=== PATIENT | female | born 1980 | race Caucasian/White ===

== ENCOUNTER 2019-03-03 12:10 | Day surgery (SDC) | payer OTHER ==
[2019-02-28 09:18] VITALS: BMI 25.0
[~2019-03-03 12:10] MED LIST: DEXAMETHASONE SOD PHOSPHATE 10 MG/ML 1 ML VIAL IV ONE; HYDROmorphone 0.5 MG/0.5 ML SYRINGE IVP PRN; LACTATED RINGERS 1,000 ML IV SCH; MORPHINE SULFATE 2 MG/ML SYRINGE IV PRN; ONDANSETRON 4 MG/2 ML VIAL IVP ONE; ONDANSETRON 4 MG/2 ML VIAL IVP PRN; Pre Op ABX Message 1 EACH MISC MISCELLANE ONE
[2019-03-03 13:24] VITALS: TEMP 97.6
[2019-03-03] MEDS ORDERED: PROPOFOL 10 MG/ML 20 ML VIAL IV ONE (16:20)
[2019-03-03] MEDS ORDERED: KETAMINE 10 MG/ML 20 ML VIAL ONE (16:20)
[2019-03-03] MEDS ORDERED: fentaNYL (PF) 50 MCG/ML 2 ML AMP ONE (16:20)
[2019-03-03] MEDS ORDERED: MIDAZOLAM 2 MG/2 ML VIAL ONE (16:20)
[2019-03-03] MEDS ORDERED: LIDOCAINE 1%-EPI 1:100,000 20 ML VIAL SQ ONE ×2 (16:42)
[2019-03-03] MEDS ORDERED: BUPIVACAINE (PF) 0.5% 30 ML VIAL SQ ONE ×2 (16:43)
[2019-03-03 17:27] VITALS: RESP 16
[2019-03-03 17:41] VITALS: BP 100/64; PULSE 67
--- NOTE | 2019-03-03 17:49 | P.OP ---
Date of Procedure: 03/03/19 Preoperative Diagnosis: Left carpal tunnel syndrome Postoperative Diagnosis: Left carpal tunnel syndrome Procedure(s) Performed: Left endoscopic carpal tunnel release Anesthesia: MAC, local Surgeon: Brandon Mendoza Estimated Blood Loss (ml): 1 Pathology: none sent Condition: stable Disposition: PACU Indications for Procedure: The patient is a 39 year-old female who was diagnosed with bilateral carpal tunnel syndrome. Treatment options (and associated risks and benefits) were discussed in the office. The patient elected to proceed with surgical release, starting with the left side. In preop, the patient denied any additional questions or concerns. Consent forms were signed. The operative site was confirmed and marked. Description of Procedure: The patient was positioned supine with the operative limb on an arm board. A tourniquet was placed on the operative arm. Anesthesia was administered uneventfully. A time-out was performed, confirming patient identifiers, the operative side, site and the procedure to be performed: all team members expressed agreement. Using aseptic technique, local anesthetic was injected into the subcutaneous tissues around the planned incision. The left upper extremity was then prepped and draped in standard, sterile fashion. The limb was exsanguinated with an Esmarch and the tourniquet was inflated. Loupe magnification was used throughout the case for optimum visualization. A 1.5 cm transverse incision was marked just proximal to the wrist flexion crease, in line with the radial border of the ring finger. The skin was sharply incised and the subcutaneous tissues were bluntly spread. The volar carpal fascia was identified and sharply incised. A synovial elevator was used to release adhesions on the underside of the transverse carpal ligament. A dilator was inserted to sound and enlarge the carpal tunnel. The hamate hook was palpable ulnarly. The side-specific guide and camera were inserted. The transverse carpal ligament was clearly visualized above. The distal edge of the ligament was identified and palpated with a probe. A rasp was used to clear the remaining synovial adhesions. The endoscopic blade was inserted and the distal half of the ligament was sharply incised. Residual distal transverse fibers were released and then the proximal portion of the ligament was divided. Wide release of ligament was visually confirmed. The camera was removed. The volar carpal fascia proximal and distal to the incision was released with scissors under direct visualization. Some tethering synovial adhesions on the inferior aspect of the palmaris longus overlying the nerve were identified and released. The tourniquet was released and good hemostasis was confirmed. The wound was thoroughly irrigated with normal saline. The incision was closed with interrupted 4-0 Nylon sutures. Additional local anesthetic with epinephrine was injected for postoperative pain control and hemostasis. A soft, sterile dressing was applied. All sponge, needle and instrument counts were correct at the end of the case. The patient tolerated the procedure well and was transferred to recovery in stable condition.
== END 2019-03-03 18:00 | disposition home or self-care (01) ==
LOC: OR 12:10
PROVIDERS: ATTEND Orthopaedic Surgery
DX: G56.03 Carpal tunnel syndrome, bilateral upper limbs (principal); M50.10 Cervical disc disorder with radiculopathy, unspecified cervical region; F32.9 Major depressive disorder, single episode, unspecified; R32 Unspecified urinary incontinence; Z79.1 Long term (current) use of non-steroidal anti-inflammatories (NSAID); Z79.52 Long term (current) use of systemic steroids; Z79.899 Other long term (current) drug therapy
CPT/HCPCS: 81025; 64721; J2250; J1100; J2405; J3010; J2704

== ENCOUNTER 2019-03-24 11:43 | Day surgery (SDC) | payer OTHER ==
[2019-03-22 13:15] VITALS: BMI 29.6
[~2019-03-24 11:43] MED LIST changes: -DEXAMETHASONE SOD PHOSPHATE 10 MG/ML 1 ML VIAL IV ONE; -HYDROmorphone 0.5 MG/0.5 ML SYRINGE IVP PRN; -LACTATED RINGERS 1,000 ML IV SCH; -MORPHINE SULFATE 2 MG/ML SYRINGE IV PRN; -ONDANSETRON 4 MG/2 ML VIAL IVP ONE; -ONDANSETRON 4 MG/2 ML VIAL IVP PRN
[2019-03-24 12:58] VITALS: RESP 18; TEMP 97.3
[2019-03-24] MEDS ORDERED: LACTATED RINGERS 1,000 ML IV ONE (13:19)
[2019-03-24] MEDS ORDERED: LIDOCAINE 1% 20 ML VIAL (10MG/ML) FOR IV START INTRADERMA ONE (13:20)
[2019-03-24] MEDS ORDERED: DEXAMETHASONE SOD PHOSPHATE 10 MG/ML 1 ML VIAL IV ONE (13:20)
[2019-03-24] MEDS ORDERED: ONDANSETRON 4 MG/2 ML VIAL IVP ONE (13:21)
[2019-03-24] MEDS ORDERED: SCOPOLAMINE 1.5MG/72HR PATCH TRANSDERM ONE (13:23)
[2019-03-24] MEDS ORDERED: PROPOFOL 10 MG/ML 20 ML VIAL IV ONE (13:30)
[2019-03-24] MEDS ORDERED: KETAMINE 10 MG/ML 20 ML VIAL ONE (13:30)
[2019-03-24] MEDS ORDERED: fentaNYL (PF) 50 MCG/ML 2 ML AMP ONE (13:30)
[2019-03-24] MEDS ORDERED: MIDAZOLAM 2 MG/2 ML VIAL ONE (13:30)
[2019-03-24] MEDS ORDERED: LIDOCAINE 1%-EPI 1:100,000 30 ML VIAL SQ ONE ×3 (13:50→14:17)
[2019-03-24] MEDS ORDERED: BUPIVACAINE (PF) 0.5% 30 ML VIAL SQ ONE ×2 (13:52→14:17)
--- NOTE | 2019-03-24 14:46 | P.OP ---
Date of Procedure: 03/24/19 Preoperative Diagnosis: Right carpal tunnel syndrome Postoperative Diagnosis: Right carpal tunnel syndrome Procedure(s) Performed: Right endoscopic carpal tunnel release Anesthesia: MAC, local Surgeon: Brandon Mendoza Estimated Blood Loss (ml): 2 Condition: stable Disposition: same day Indications for Procedure: The patient is a 39-year-old female who was diagnosed with bilateral carpal tunnel syndrome. She previously underwent left endoscopic carpal tunnel release and returns for release of her right side. Treatment options (and associated risks and benefits) were discussed in the office; she expressed understanding and a desire to proceed with surgery. In preop, the patient denied any additi onal questions or concerns. Consent forms were signed. The operative site was confirmed and marked. Description of Procedure: The patient was positioned supine with the operative limb on an arm board. A tourniquet was placed on the operative arm. Monitored anesthesia was administered uneventfully. A time-out was performed, confirming patient identifiers, the operative side, site and the procedure to be performed: all team members expressed agreement. Using aseptic technique, local anesthetic was injected into the subcutaneous tissues around the planned incision. The right upper extremity was then prepped and draped in standard, sterile fashion. The limb was exsanguinated with an Esmarch and the tourniquet was inflated. Loupe magnification was used throughout the case for optimum visualization. A 1.5 cm transverse incision was marked just proximal to the wrist flexion crease, in line with the radial border of the ring finger. The skin was sharply incised and the subcutaneous tissues were bluntly spread. Superficial vessels adjacent to the incision were carefully mobilized. The volar carpal fascia was identified and sharply incised. A synovial elevator was used to release adhesions on the underside of the transverse carpal ligament. A dilator was inserted to sound and enlarge the carpal tunnel. The hamate hook was palpable ulnarly. The side-s pecific guide and camera were inserted. The transverse carpal ligament was clearly visualized above. The distal edge of the ligament was identified and palpated with a probe. A rasp was used to clear the remaining synovial adhesions. The endoscopic blade was inserted and the distal half of the ligament was sharply incised. Residual distal transverse fibers were released and then the proximal portion of the ligament was divided. Wide release of ligament was visually confirmed. Muscle fibers were noted above the proximal portion of the cut ligament, likely representing a palmaris brevis. The camera was removed. The volar carpal fascia proximal and distal to the incision was released with scissors under direct visualization. The tourniquet was released. There was a mild amount of arterial bleeding from the proximal aspect of the wound which was very well controlled with held pressure. The wound was thoroughly irrigated with normal saline. The incision was closed with interrupted 4-0 Nylon sutures. Additional local anesthetic with epinephrine was injected for adjunctive hemostasis and postoperative pain control. A soft, sterile dressing was applied. All sponge, needle and instrument counts were correct at the end of the case. The patient tolerated the procedure well and was transferred to recovery in stable condition.
[2019-03-24 15:05] VITALS: BP 117/79; PULSE 73
== END 2019-03-24 15:05 | disposition home or self-care (01) ==
LOC: OR 11:43
PROVIDERS: ATTEND Orthopaedic Surgery
DX: G56.01 Carpal tunnel syndrome, right upper limb (principal); F32.9 Major depressive disorder, single episode, unspecified; R32 Unspecified urinary incontinence; Z98.890 Other specified postprocedural states; M50.10 Cervical disc disorder with radiculopathy, unspecified cervical region; Z79.2 Long term (current) use of antibiotics; Z79.899 Other long term (current) drug therapy
CPT/HCPCS: 81025; 29848; J2250; J1100; J2405; J3010; J2704

== ENCOUNTER 2019-10-27 11:35 | Inpatient (IN) | payer MEDICAID, OTHER ==
--- NOTE | 2019-10-27 12:21 | ED ---
General Adult HPI - General Chief complaint: Psychiatric Symptoms Stated complaint: Mental Health Time Seen by Provider: 10/27/19 11:45 Source: patient, RN notes reviewed, old records reviewed Mode of arrival: ambulatory Limitations: no limitations - History of Present Illness Initial comments: This a 39-year-old female presents emergency department with past medical history significant for depression and a history of OCD. Patient is on multiple medications and she stops and starts some as she sees necessary. Patient states she hasn't taken anything for days. Patient states she is been depressed for the last couple of weeks to the point where she can't go to work and she continued to get out of bed most days. Her mom states her house is normal macula it but now it is a complete mess that she's not even doing her laundry. Patient does make suicidal statements but states she isn't suicidal she just wishes she wasn't here but she would never commit suicide because of her dogs and her children. Patient denies any physical complaints today. Patient denies chest pain difficulty breathing first breath. - Related Data Home Medications Medication Instructions Recorded Confirmed ARIPiprazole [Abilify] 4 mg PO QAM 02/28/19 10/27/19 FLUoxetine HCL [PROzac] 60 mg PO QAM 02/28/19 10/27/19 Oxybutynin Chloride [Ditropan] 5 mg PO HS 02/28/19 10/27/19 Pregabalin [Lyrica] 150 mg PO BID 02/28/19 10/27/19 Dextroamphetamine/Amphetamine 20 mg PO BID 03/22/19 10/27/19 [Adderall] lamoTRIgine [LaMICtal] 100 mg PO DAILY 10/27/19 10/27/19 Allergies Allergy/AdvReac Type Severity Reaction Status Date / Time No Known Allergies Allergy Verified 10/27/19 13:01 Review of Systems ROS Statement: Those systems with pertinent positive or pertinent negative responses have been documented in the HPI. ROS Other: All systems not noted in ROS Statement are negative. Past Medical History Additional Past Medical History / Comment(s): Urinary incontinence. Questionabl left palm fracture, had fall on 03/18/19, Dr Mendoza examined and had Xray. History of Any Multi-Drug Resistant Organisms: None Reported Past Surgical History: Breast Surgery, Section Additional Past Surgical History / Comment(s): Breast reduction, C5 and C6- implants, left wrist carpal tunnel release. Past Anesthesia/Blood Transfusion Reactions: No Reported Reaction Past Psychological History: Anxiety, Bipolar, Depression Smoking Status: Never smoker Past Alcohol Use History: None Reported Past Drug Use History: Marijuana - Past Family History Mother Family Medical History: No Reported History General Exam - General Exam Comments Initial Comments: GENERAL: Patient is well-developed and well-nourished. Patient is nontoxic and well- hydrated and is in mild distress. ENT: Neck is soft and supple. No significant lymphadenopathy is noted. Oropharynx is clear. Moist mucous membranes. Neck has full range of motion without eliciting any pain. EYES: The sclera were anicteric and conjunctiva were pink and moist. Extraocular movements were intact and pupils were equal round and reactive to light. Eyelids were unremarkable. PULMONARY: Unlabored respirations. Good breath sounds bilaterally. No audible rales rhonchi or wheezing was noted. CARDIOVASCULAR: There is a regular rate and rhythm without any murmurs gallops or rubs. ABDOMEN: Soft and nontender with normal bowel sounds. SKIN: Skin is clear with no lesions or rashes and otherwise unremarkable. NEUROLOGIC: Patient is alert and oriented x3. Cranial nerves II through XII are grossly intact. Motor and sensory are also intact. Normal speech, volume and content. Symmetrical smile. MUSCULOSKELETAL: Normal extremities with adequate strength and full range of motion. No lower extremity swelling or edema. No calf tenderness. LYMPHATICS: No significant lymphadenopathy is noted PSYCHIATRIC: Patient is very depressed occasionally tearful and states she doesn't know was wrong with her but she has no motivation to do anything all she wants to do now is go home and go to bed. Patient does deny suicidal ideations. Patient states she wishes she was alive but she does not want harm himself Limitations: no limitations Course Vital Signs 10/27/19 11:43 Temperature 97.6 F Pulse Rate 97 Respiratory 16 Rate Blood Pressure 119/82 O2 Sat by Pulse 93 L Oximetry Medical Decision Making - Medical Decision Making EPS evaluated the patient and decided to admit the patient. - Lab Data Lab Results 10/27/19 Range/Units 13:00 Urine Opiates Screen Not Detected (NotDetected) Ur Oxycodone Screen Not Detected (NotDetected) Urine Methadone Screen Not Detected (NotDetected) Ur Propoxyphene Screen Not Detected (NotDetected) Ur Barbiturates Screen Not Detected (NotDetected) U Tricyclic Antidepress Detected H (NotDetected) Ur Phencyclidine Scrn Not Detected (NotDetected) Ur Amphetamines Screen Detected H (NotDetected) U Methamphetamines Scrn Detected H (NotDetected) U Benzodiazepines Scrn Detected H (NotDetected) Urine Cocaine Screen Not Detected (NotDetected) U Marijuana (THC) Screen Detected H (NotDetected) Disposition Clinical Impression: Depression Disposition: ADMITTED IP TO THIS HOSP Referrals: Austen Calero MD [Primary Care Provider] - 1-2 days Time of Disposition: 13:34
[2019-10-27 13:28] LABS: Amphetamine Screen,Urine Detected (NotDetected); Barbiturate Screen,Urine Not Detected (NotDetected); Benzodiazepines Screen,Urine Detected (NotDetected); Cocaine Screen,Urine Not Detected (NotDetected); Methadone Screen, Urine Not Detected (NotDetected); Opiate Screen,Urine Not Detected (NotDetected); Oxycodone Screen, Urine Not Detected (NotDetected); Phencyclidine Screen,Urine Not Detected (NotDetected); Tricyclic Antidepressant,Urine Detected (NotDetected); Urn Cannabinoid Scrn Detected (NotDetected)
[2019-10-27] MEDS ORDERED: ACETAMINOPHEN TAB 325 MG TAB PO PRN (13:47)
[2019-10-27] MEDS ORDERED: MAGNESIUM HYDROXIDE 2,400 MG/10 ML CUP PO PRN (13:47)
[2019-10-27] MEDS ORDERED: MAG HYDROX/AL HYDROX/SIMETH 30 ML CUP PO PRN (13:47)
[2019-10-27 14:34] LABS: Appearance,Urine Cloudy (Clear); Bacteria,Urine Occasional /hpf; Bilirubin,Urine Negative (Negative); Blood,Urine Small (Negative); Calcium Oxalate Crystals,Urine Moderate /hpf; Color,Urine Dark Yellow; Glucose,Urine (UA) Negative (Negative); Ketones,Urine 1+ (Negative); Leukocyte Esterase,Urine Small (Negative); Mucus,Urine Many /hpf; Nitrite,Urine Negative (Negative); Protein,Urine 1+ (Negative); RBC,Urine 12 /hpf (0-5); Specific Gravity,Urine 1.031 (1.001-1.035); Squamous Epithelial Cell,Urine 25 /hpf (0-4); WBC,Urine 9 /hpf (0-5)
[2019-10-27] MEDS: OXYBUTYNIN CHLORIDE 5 MG TAB PO SCH (21:00)
--- NOTE | 2019-10-27 21:05 | P.CONS ---
History of Present Illness - Reason for Consult Consult date: 10/27/19 medical management Requesting physician: Brien Chaves - Chief Complaint Not feeling well - History of Present Illness Consultation: This is a 39-year-old patient of Dr. Arsenio Calero. Patient has a diagnosis of bipolar disorder and obsessive-compulsive disorder. Has seen a psychiatrist in the past. Further medications are being managed by her PCP. Recent patient stopped taking her medications. Just not feeling right. Not able to do her job. 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 Telemetry was to get back to work and able to do so. She did: August job and just felt she could not do it. She is also broken recently from a 5-year-old relationship. Patient is sleepy but not able to sleep well. Appetite is gone down. Somewhat restless. Mind his daughter at rest. In the ER was reported that normally patient's house is a well taking care of put currently in no mass. Patient's body will be doing her laundry. Patient did make some suicidal statements but really wants to get back to work complete to normal life. She has a 12-year-old son. Review of systems: GEN.: Tired EYES: None HEENT: None NECK: None RESPIRATORY: None CARDIOVASCULAR: None GASTROINTESTINAL: None GENITOURINARY: None MUSCULOSKELETAL: None LYMPHATICS: None HEMATOLOGICAL: None PSYCHIATRY: As above NEUROLOGICAL: None Past medical history to include: Bipolar disorder, obsessive-compulsive disorder, urinary incontinence Social history: -This is a 12-year-old son. 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 Broke up from a 5-year-old relationship recently. Does marijuana nearly daily and also THC oil Family history: Reviewed, noncontributory to presentation Physical examination: VITAL SIGNS: 97.6, 97, 16, 11 9/82, 93% room air GENERAL: 26.9, sitting up in a chair somewhat fidgety restless. EYES: Pupils equal. Conjunctiva normal. HEENT: External appearance of nose and ears normal, oral cavity grossly normal. NECK: JVD not raised; masses not palpable. HEART: First and second heart sounds are normal; no edema. LUNGS: Respiratory rate normal; clear to auscultation. ABDOMEN: Soft, nontender, liver spleen not palpable, no masses palpable. PSYCH: Alert and oriented x3; mood and affect anxiousl. NEUROLOGICAL: Cranial nerves grossly intact; no facial asymmetry, power and sensation grossly intact. LYMPHATICS: No lymph nodes palpable in the axilla and neck DERMATOLOGICAL: Dry skin INVESTIGATIONS, reviewed in the clinical context: UA-contaminated sample Urine drug screen positive for tricyclic antidepressants, amphetamine, with amphetamines, benzodiazepines, marijuana Assessment: -This is a patient with a mixture of symptoms. Patient has a decreased appetite. Sleepy but not able to sleep well. Restless. Depressed. Some suicidal. Patient's urine drug screen is positive for multiple elements. Patient has not been taking her medications. for last 2 weeks. Patient denies taking any other recreational drugs. -Marijuana use -Situational insomnia disorder -ichthyosis Plan: Patient will need some counseling and will need to have her medications reassessed and resumed after evaluation by psychiatrist. Patient told to use cream available for her dry skin. Thank you Dr. Moody Past Medical History Additional Past Medical History / Comment(s): Urinary incontinence. Questionable left palm fracture, had fall on 03/18/19, Dr Mendoza examined and had Xray. History of Any Multi-Drug Resistant Organisms: None Reported Past Surgical History: Breast Surgery, Section Additional Past Surgical History / Comment(s): Breast reduction, C5 and C6- implants, left wrist carpal tunnel release. Past Anesthesia/Blood Transfusion Reactions: No Reported Reaction Past Psychological History: Anxiety, Bipolar, Depression Smoking Status: Never smoker Past Alcohol Use History: None Reported Past Drug Use History: Marijuana Additional Drug Use History / Comment(s): Medical Marijuana use once monthly. Aware no use 24 hrs prior to procedure. - Past Family History Mother Family Medical History: No Reported History Medications and Allergies Home Medications Medication Instructions Recorded Confirmed Type ARIPiprazole [Abilify] 4 mg PO QAM 02/28/19 10/27/19 History FLUoxetine HCL [PROzac] 60 mg PO QAM 02/28/19 10/27/19 History Oxybutynin Chloride [Ditropan] 5 mg PO HS 02/28/19 10/27/19 History Pregabalin [Lyrica] 150 mg PO BID 02/28/19 10/27/19 History Dextroamphetamine/Amphetamine 20 mg PO BID 03/22/19 10/27/19 History [Adderall] lamoTRIgine [LaMICtal] 100 mg PO DAILY 10/27/19 10/27/19 History Allergies Allergy/AdvReac Type Severity Reaction Status Date / Time No Known Allergies Allergy Verified 10/27/19 14:25 Physical Exam Vitals: Vital Signs Temp Pulse Pulse Resp BP BP Pulse Ox 10/27/19 14:28 97.6 F 88 18 117/75 98 10/27/19 14:15 97.6 F 88 18 118/75 98 10/27/19 13:56 97.8 F 92 16 120/78 98 10/27/19 11:43 97.6 F 97 16 119/82 93 L Intake and Output 10/27/19 10/27/19 10/27/19 06:59 14:59 22:59 Other: Weight 77.111 kg 73.2 kg Results Labs: Abnormal Lab Results - Last 24 Hours (Table) 10/27/19 10/27/19 Range/Units 13:00 13:00 Urine Appearance Cloudy H (Clear) Urine Protein 1+ H (Negative) Urine Ketones 1+ H (Negative) Urine Blood Small H (Negative) Ur Leukocyte Esterase Small H (Negative) Urine RBC 12 H (0-5) /hpf Urine WBC 9 H (0-5) /hpf Ur Squamous Epith Cells 25 H (0-4) /hpf Calcium Oxalate Crystal Moderate H (None) /hpf Urine Bacteria Occasional H (None) /hpf Urine Mucus Many H (None) /hpf U Tricyclic Antidepress Detected H (NotDetected) Ur Amphetamines Screen Detected H (NotDetected) U Methamphetamines Scrn Detected H (NotDetected) U Benzodiazepines Scrn Detected H (NotDetected) U Marijuana (THC) Screen Detected H (NotDetected)
[2019-10-27] MEDS: LORazepam 1 MG TAB PO PRN (21:50)
[2019-10-28 08:05] LABS: Basophils % (A) 0 %; Eosinophils # (A) 0.2 k/uL (0-0.7); Eosinophils % (A) 3 %; HCT 43.1 % (34.0-46.0); HGB 14.5 gm/dL (11.4-16.0); Lymphocytes # (A) 1.2 k/uL (1.0-4.8); Lymphocytes % (A) 23 %; MCH 28.3 pg (25.0-35.0); MCHC 33.7 g/dL (31.0-37.0); MCV 84.1 fL (80.0-100.0); Mean Platelet Volume 7.4; Monocytes # (A) 0.3 k/uL (0-1.0); Monocytes % (A) 6 %; Neutrophils # (A) 3.3 k/uL (1.3-7.7); Neutrophils % (A) 65 %; Platelet Count 305 k/uL (150-450); RBC 5.12 m/uL (3.80-5.40); RDW 12.5 % (11.5-15.5); WBC 5.1 k/uL (3.8-10.6)
[2019-10-28 08:17] LABS: ALT 34 U/L (4-34); AST 35 U/L (14-36); African American GFR (CKD) >90 (>60 ml/min/1.73 sqM); Albumin 3.8 g/dL (3.5-5.0); Alkaline Phosphatase 64 U/L (38-126); Anion Gap 9 mmol/L; Blood Urea Nitrogen 10 mg/dL (7-17); Calcium 9.3 mg/dL (8.4-10.2); Carbon Dioxide 33 mmol/L (22-30); Chloride 99 mmol/L (98-107); Cholesterol 144 mg/dL (<200); Glucose 98 mg/dL (74-99); HDL Cholesterol 37 mg/dL (40-60); LDL Cholesterol,Calculated 83 mg/dL (0-99); Non-African American GFR(CKD) >90 (>60 ml/min/1.73 sqM); Potassium 3.5 mmol/L (3.5-5.1); Sodium 141 mmol/L (137-145); Total Bilirubin 0.7 mg/dL (0.2-1.3); Total Protein 6.5 g/dL (6.3-8.2); Triglycerides 120 mg/dL (<150)
--- NOTE | 2019-10-28 11:32 | P.HP ---
Psychiatric H&P - . H&P Date: 10/28/19 History & Physical: Allergies Allergy/AdvReac Type Severity Reaction Status Date / Time No Known Allergies Allergy Verified 10/27/19 14:25 Vital Signs Temp 98.6 F 10/28/19 06:48 Pulse 65 10/28/19 06:48 Resp 18 10/28/19 06:48 BP 134/79 10/28/19 06:48 Pulse Ox 98 10/27/19 14:28 Intake & Output 10/27/19 10/28/19 10/28/19 18:59 06:59 18:59 Weight 73.2 kg Laboratory Last Values WBC 5.1 k/uL (3.8-10.6) 10/28/19 07:27 RBC 5.12 m/uL (3.80-5.40) 10/28/19 07:27 Hgb 14.5 gm/dL (11.4-16.0) 10/28/19 07:27 Hct 43.1 % (34.0-46.0) 10/28/19 07:27 MCV 84.1 fL (80.0-100.0) 10/28/19 07:27 MCH 28.3 pg (25.0-35.0) 10/28/19 07:27 MCHC 33.7 g/dL (31.0-37.0) 10/28/19 07:27 RDW 12.5 % (11.5-15.5) 10/28/19 07:27 Plt Count 305 k/uL (150-450) 10/28/19 07:27 Neutrophils % 65 % 10/28/19 07:27 Lymphocytes % 23 % 10/28/19 07:27 Monocytes % 6 % 10/28/19 07:27 Eosinophils % 3 % 10/28/19 07:27 Basophils % 0 % 10/28/19 07:27 Neutrophils # 3.3 k/uL (1.3-7.7) 10/28/19 07:27 Lymphocytes # 1.2 k/uL (1.0-4.8) 10/28/19 07:27 Monocytes # 0.3 k/uL (0-1.0) 10/28/19 07:27 Eosinophils # 0.2 k/uL (0-0.7) 10/28/19 07:27 Basophils # 0.0 k/uL (0-0.2) 10/28/19 07:27 Sodium 141 mmol/L (137-145) 10/28/19 07:27 Potassium 3.5 mmol/L (3.5-5.1) 10/28/19 07:27 Chloride 99 mmol/L (98-107) 10/28/19 07:27 Carbon Dioxide 33 mmol/L (22-30) H 10/28/19 07:27 Anion Gap 9 mmol/L 10/28/19 07:27 BUN 10 mg/dL (7-17) 10/28/19 07:27 Creatinine 0.70 mg/dL (0.52-1.04) 10/28/19 07:27 Est GFR (CKD-EPI)AfAm >90 (>60 ml/min/1.73 sqM) 10/28/19 07:27 Est GFR (CKD-EPI)NonAf >90 (>60 ml/min/1.73 sqM) 10/28/19 07:27 Glucose 98 mg/dL (74-99) 10/28/19 07:27 Calcium 9.3 mg/dL (8.4-10.2) 10/28/19 07:27 Total Bilirubin 0.7 mg/dL (0.2-1.3) 10/28/19 07:27 AST 35 U/L (14-36) 10/28/19 07:27 ALT 34 U/L (4-34) 10/28/19 07:27 Alkaline Phosphatase 64 U/L (38-126) 10/28/19 07:27 Total Protein 6.5 g/dL (6.3-8.2) 10/28/19 07:27 Albumin 3.8 g/dL (3.5-5.0) 10/28/19 07:27 Triglycerides 120 mg/dL (<150) 10/28/19 07:27 Cholesterol 144 mg/dL (<200) 10/28/19 07:27 LDL Cholesterol, Calc 83 mg/dL (0-99) 10/28/19 07:27 HDL Cholesterol 37 mg/dL (40-60) L 10/28/19 07:27 TSH 0.256 mIU/L (0.465-4.680) L 10/28/19 07:27 Urine Color Dark Yellow 10/27/19 13:00 Urine Appearance Cloudy (Clear) H 10/27/19 13:00 Urine pH 6.0 (5.0-8.0) 10/27/19 13:00 Ur Specific [place] 1.031 (1.001-1.035) 10/27/19 13:00 Urine Protein 1+ (Negative) H 10/27/19 13:00 Urine Glucose (UA) Negative (Negative) 10/27/19 13:00 Urine Ketones 1+ (Negative) H 10/27/19 13:00 Urine Blood Small (Negative) H 10/27/19 13:00 Urine Nitrite Negative (Negative) 10/27/19 13:00 Urine Bilirubin Negative (Negative) 10/27/19 13:00 Urine Urobilinogen 3.0 mg/dL (<2.0) 10/27/19 13:00 Ur Leukocyte Esterase Small (Negative) H 10/27/19 13:00 Urine RBC 12 /hpf (0-5) H 10/27/19 13:00 Urine WBC 9 /hpf (0-5) H 10/27/19 13:00 Ur Squamous Epith Cells 25 /hpf (0-4) H 10/27/19 13:00 Calcium Oxalate Crystal Moderate /hpf (None) H 10/27/19 13:00 Urine Bacteria Occasional /hpf (None) H 10/27/19 13:00 Urine Mucus Many /hpf (None) H 10/27/19 13:00 Urine HCG, Qual Not Detected (Not Detectd) 10/27/19 13:00 Urine Opiates Screen Not Detected (NotDetected) 10/27/19 13:00 Ur Oxycodone Screen Not Detected (NotDetected) 10/27/19 13:00 Urine Methadone Screen Not Detected (NotDetected) 10/27/19 13:00 Ur Propoxyphene Screen Not Detected (NotDetected) 10/27/19 13:00 Ur Barbiturates Screen Not Detected (NotDetected) 10/27/19 13:00 U Tricyclic Antidepress Detected (NotDetected) H 10/27/19 13:00 Ur Phencyclidine Scrn Not Detected (NotDetected) 10/27/19 13:00 Ur Amphetamines Screen Detected (NotDetected) H 10/27/19 13:00 U Methamphetamines Scrn Detected (NotDetected) H 10/27/19 13:00 U Benzodiazepines Scrn Detected (NotDetected) H 10/27/19 13:00 Urine Cocaine Screen Not Detected (NotDetected) 10/27/19 13:00 U Marijuana (THC) Screen Detected (NotDetected) H 10/27/19 13:00 10/28/19 11:21 IDENTIFYING DATA: Patient is a 39-year-old female with a history of bipolar disorder, OCD U currently lives alone has an 11-year-old son and 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 HPI: Patient presented to the hospital yesterday with her mother after patient has been experiencing an increase in her depression for the past 2 weeks. As per ED report states that patient has had trouble getting out of bed and taking care of herself in her house. Patient has had poor energy and motivation and having suicidal ideations. Patient appeared to be disheveled however was attempting to cooperate during interview. She endorsed having bipolar disorder for many years and has been on medications including Abilify Prozac and Lamictal which has helped her stay stable in the past. She is admitted to previous manic episodes however denies any within the past 2 months. She states that she has been off her medications for approximately one week now due to poor motivation. She claims that she is recently had a big stressor in her life a five-year relationship is ended with her boyfriend. She claims that she is also having difficulty working 3 jobs and is having financial problems keeping up with the bills. Patient also admitted to having stable OCD and having obsessions over keeping order. She claims that she slept well last night and has been having a decrease in her appetite and energy. Patient denies any suicidal or homicidal ideations intent or plan. At this time patient denies any auditory or visual hallucinations. Patient denies any flight of ideas racing thoughts and increased in goal directed behavior. Patient admits to using marijuana daily approximately 1 joint a day, also states that she recently tried methamphetamine with her ex-boyfriend and her UDS came back positive for methamphetamine, benzodiazepines THC and TCAs. Patient denies any cigarette or alcohol use at this time. PAST PSYCHIATRIC HISTORY: Patient states that patient claims that she has bipolar depression, OCD and has been previously on Abilify, Prozac and Lamictal. She claims that her last hospitalization was in [facility] when she was a teenager. She claims that she has no psychiatric outpatient follow-up and is being managed by her primary care physician. PMH: Urinary incontinence, previous carpal tunnel surgery in [place]. ALLERGIES: as per EMR CHEMICAL DEPENDENCY HISTORY: as per HPI FAMILY PSYCHIATRIC/SUBSTANCE USE HISTORY: denies SOCIAL HISTORY: She states that she is born and raised in [place] and moved to [place]. She claims that she completed high school and did some college over dropped out. She denies any legal troubles and denies are going to shelter or snf. 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 MENTAL STATUS EXAM: General Appearance: Patient appears to be disheveled, older than stated age is alert, and attempts to cooperate. Fair eye contact. Behavior: Patient is calmly seated without any agitated behavior. Speech: Patient's speech is fluent and nonpressured. Soft-spoken. Mood/Affect: Patient reports their mood is depressed, affect is congruent and constricted. Suicidality/Homicidality: Patient denies having any suicidal or homicidal ideation intent or plan. Perceptions: Patient denies any auditory or visual hallucinations. Though content/process: There is no evidence of any delusional thought content and thought process is linear and goal-directed. Vague/evasive. Memory and concentration: AOX3, grossly intact for the purposes of this session. Can spell "WORLD" backwards Judgment and insight: poor STRENGTHS/WEAKNESSES: strength is that patient has good support in her family, weaknesses the patient has poor insight and polysubstance use INTELLECT: average IMPRESSIONS: Bipolar disorder type I, currently depressed Cannabis use disorder Methamphetamine abuse PLAN: -Patient is admitted under voluntary status to [facility] for stabilization of psychiatric symptoms and safety. Patient signed adult voluntary form and medication consent and is placed in patient's chart. -Medications : Will restart patient on Lamictal however at a dose of 25 mg twice a day for mood stabilization/depression. We'll also restart patient on Abilify at 2.5 mg daily for mood stabilization. Will restart patient on Prozac 20 mg daily for mood. Melatonin 5 mg daily at bedtime for sleep. -Ativan PRN for agitation/aggression -TSH was decreased, we will order a free T4. -Patient was counselled on substance abuse and was superficial however desired to cut back on use -Patient was informed of the risks, benefits and side effects of the medication and patient verbally consented to taking the medications. Patient signed med consent form and was placed in chart. -NRT -not need this patient does not smoke currently. -ADOLFO on board for discharge planning
[2019-10-28] MEDS: FLUoxetine HCL 20 MG CAP PO SCH (11:49)
[2019-10-28] MEDS: ARIPiprazole 5 MG TAB PO SCH (11:49)
[2019-10-28] MEDS: lamoTRIgine 25 MG TAB PO SCH ×2 (11:49→20:13)
[2019-10-28 14:11] LABS: Hemoglobin A1C 5.6 % (4.0-6.0)
[2019-10-28] MEDS: MELATONIN 5 MG TABLET PO SCH (20:13)
[2019-10-28] MEDS: LORazepam 1 MG TAB PO PRN (20:13)
[2019-10-28] MEDS: OXYBUTYNIN CHLORIDE 5 MG TAB PO SCH (20:13)
[2019-10-29] MEDS: ARIPiprazole 5 MG TAB PO SCH (08:30)
[2019-10-29] MEDS: FLUoxetine HCL 20 MG CAP PO SCH (08:30)
[2019-10-29] MEDS: lamoTRIgine 25 MG TAB PO SCH ×2 (08:31→20:22)
[2019-10-29] MEDS: LORazepam 1 MG TAB PO PRN ×2 (08:32→20:21)
--- NOTE | 2019-10-29 14:31 | P.PN ---
Progress Note - Text Progress Note Date: 10/29/19 Interval history: patient was seen laying down in her bed this afternoon and was directable and agreeable to seek to read in the office. Patient claims that "I'm starting to feel better" however continues to appear to have poor hygiene and grooming. She states that she is taking her medications and was requesting to have her Prozac increased. Patient also claims that she was able to sleep last night. She states that she has not been going to groups and feels no motivation to do so claiming "I just stick to myself and don't need to hear other people's problems". Patient was encouraged to go to groups and to be more visible on the unit patient agreed. She states that her appetite is fair. At this time patient denies any suicidal or homicidal ideations intent or plan. Denies any Auditory or visual hallucinations. Patient denies any side effects from the medications and has been compliant with meds. Mental status exam: General Appearance: Patient appears to be stated age is alert, attempts to cooperate. poor hygiene and grooming. Behavior: No agitated behavior. Patient is calm and directable Speech: Patient's speech is fluent and nonpressured. soft spoken. Mood/Affect: Mood is improving mildly, affect is congruent and constricted. Suicidality/Homicidality: Patient denies having any suicidal or homicidal ideation intent or plan. Perceptions: Patient denies any auditory or visual hallucinations. Though content/process: There is no evidence of any delusional thought content and thought process is linear and goal-directed. heart/evasive. Memory and concentration: AOX3, grossly intact for the purposes of this session Judgment and insight: improving mildly Assessment/Plan: Continue with current diagnosis. Patient continues to meet criteria for inpatient psychiatric admission for symptom stabilization and safety. at this time will increase his Prozac to 40 mg daily for mood/anxiety. We'll also increase Lamictal to 25 mg daily at bedtime +50 mg every morning for bipolar depression. Monitor for medication compliance and for any psychotropic medication side effects. Will continue to monitor ongoing response to treatment.
[2019-10-29] MEDS: MELATONIN 5 MG TABLET PO SCH (20:22)
[2019-10-29] MEDS: OXYBUTYNIN CHLORIDE 5 MG TAB PO SCH (20:22)
[2019-10-30] MEDS: ARIPiprazole 5 MG TAB PO SCH (08:35)
[2019-10-30] MEDS: LORazepam 1 MG TAB PO PRN (08:37)
[2019-10-30] MEDS ORDERED: lamoTRIgine 25 MG TAB PO SCH (09:00)
[2019-10-30] MEDS ORDERED: FLUoxetine HCL 20 MG CAP PO SCH (09:00)
--- NOTE | 2019-10-30 12:40 | P.PN ---
Progress Note - Text Progress Note Date: 10/30/19 Interval History: Patient is a 39-year-old female, her chart was reviewed and the patient was seen. Patient reports that she had been under increasing stress recently due to ending a relationship, financial stress and states that she had stopped her medications for about a week or so prior to her admission. Patient states that she was becoming increasingly depressed due to the stresses, and was encouraged to try methamphetamine which she states made things worse causing her to present to the hospital after she saw her therapist as an outpatient. Patient states that she had only recently been seen a as in the remote past she had been followed at [facility] but when the clinic moved and her therapist and psychiatrist moved she was being seen by her primary medical doctor was not receiving any counseling. Patient states that her prior medications were Lamictal 100 mg at bedtime, Prozac 60 mg in the morning and Abilify 4 mg in the morning she was also using Klonopin on an as-needed basis as an outpatient. Patient reports that she is not attending any groups or activities because she is not a social person, she states that her appetite is our 8 and that she is no longer feeling suicidal. She states that she is feeling less depressed and reports no OCD symptoms. She feels that she is improving and has no passive thoughts that she wishes she wasn't here. She states that she is not as depressed as she was on admission. Mental Status: Appearance/Attitude: Patient is appropriately dressed and grooming is fair and she makes eye contact. Patient is cooperative. Behavior: Patient does not exhibit any psychomotor agitation or retardation Speech/Language: Patient's speech is spontaneous of normal volume and rhythm, she is coherent. Thought Process: Patient is goal-directed there is no evidence of loose association or flight of ideas Thought Content: Patient denies any auditory or visual hallucinations and no delusions or paranoid ideation or elicited. Patient states that she is feeling less depressed, states that she is sleeping better and her appetite is fair. She reports not attending groups or activities because she is not a very social person. Patient reports no side effects from the medication. Suicidal/Homicidal Ideation: Patient denies any current suicidal or homicidal ideation Sensorium/Cognition: Patient is alert and oriented to person, place, and time and recent and remote memory are grossly intact. Mood/Affect: Patient's mood is less depressed, her affect remains slightly blunted Insight/Judgment: Patient's insight and judgment are fair. Assessment: Patient reports some improvement with the adjustments to her medications, she states that she is not attending groups because she is not a social person, she reports that her appetite and sleep are returning to normal. Patient reports no passive thoughts that she wishes she wasn't here and feels that her use of methamphetamine made her more depressed. She states that she has restarted in outpatient psychiatric services due to recent stresses financially as well as attending a five-year relationship. Patient reports no side effects from her medications. Patient's free T4 was within normal limits. Plan: Patient's Lamictal will be increased tomorrow night to 100 mg at bedtime which was her prior outpatient dose, her Prozac will be increased tomorrow to 60 mg in the morning which is also her prior outpatient dosage and Abilify will be increased to 5 mg in the morning to target her symptoms of depression, OCD and anxiety. Patient continue on melatonin 5 mg at bedtime to assist with sleep. We will also decrease the Ativan to 0.5 mg on a when necessary basis the patient was encouraged to discuss her use of Klonopin as an outpatient with her psychiatrist once she is discharged. Patient continues to require inpatient treatment and will consider discharge on Wednesday should she have no side effects from the adjustments to her medications and no increase or return of her depressive symptoms or suicidal thoughts. Patient was encouraged to attend groups and activities and encouraged to get up and walk on the unit.
[2019-10-30] MEDS: LORazepam 0.5 MG TAB PO PRN ×2 (13:54→21:02)
[2019-10-30] MEDS: MELATONIN 5 MG TABLET PO SCH (21:01)
[2019-10-30] MEDS: OXYBUTYNIN CHLORIDE 5 MG TAB PO SCH (21:01)
[2019-10-30] MEDS: lamoTRIgine 25 MG TAB PO SCH (21:02)
[2019-10-31 02:15] VITALS: RESP 16
[2019-10-31] MEDS: LORazepam 0.5 MG TAB PO PRN ×3 (02:20→21:05)
[2019-10-31] MEDS: ARIPiprazole 5 MG TAB PO SCH (08:45)
[2019-10-31] MEDS: FLUoxetine HCL 20 MG CAP PO SCH (08:45)
--- NOTE | 2019-10-31 12:07 | P.PN ---
Progress Note - Text Progress Note Date: 10/31/19 Interval History: Patient is a 39-year-old female who was seen this morning and she reports that she is doing much better, feels that she is back to close to her baseline. 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 Patient reported that she slept fairly well last night but continues to not attend groups or activities. She states that she is eating well and has no current suicidal thoughts. Patient reports no side effects from the changes to her medications. Mental Status: Appearance/Attitude: Patient is casually dressed, makes eye contact and is cooperative Behavior: Patient does not display any psychomotor agitation or retardation Speech/Language: Patient's speech is spontaneous and normal volume and rhythm and she is coherent Thought Process: Patient is goal-directed there is no evidence of loose associations or flight of ideas Thought Content: Patient denies any auditory or visual hallucinations and no delusions or paranoid ideation or elicited. 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 She reports that she is eating well. She reports that she is not feeling depressed, has more energy, better appetite is good. Suicidal/Homicidal Ideation: She denies any current suicidal or homicidal ideation Sensorium/Cognition: Patient is alert and oriented to person, place, and time and her recent and remote memory are grossly intact Mood/Affect: Patient's mood is euthymic and her affect is appropriate Insight/Judgment: Patient's insight and judgment are fair Assessment: Patient reports doing much better now that her medications of been increased to her prior doses, she reports no current suicidal ideation and states that she is not feeling as depressed. 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 She reports no side effects from her medication. Patient continues to not attend any groups or activities stating that she is not a social person. Plan: Patient will continue on Abilify 5 mg daily, Prozac 60 mg in the morning and her Lamictal be increased tonight to 100 mg at bedtime and melatonin 5 mg at bedtime. Patient is not having any side effects or medication and we discussed discharge tomorrow and she was agreeable with this plan.
[2019-10-31] MEDS ORDERED: lamoTRIgine 100 MG TAB PO SCH (21:00)
[2019-10-31] MEDS: MELATONIN 5 MG TABLET PO SCH (21:05)
[2019-10-31] MEDS: OXYBUTYNIN CHLORIDE 5 MG TAB PO SCH (21:05)
[2019-11-01] MEDS: LORazepam 0.5 MG TAB PO PRN (04:03)
[2019-11-01 06:59] VITALS: BP 99/53; PULSE 98; TEMP 98.6
[2019-11-01] MEDS: ARIPiprazole 5 MG TAB PO SCH (08:16)
[2019-11-01] MEDS: FLUoxetine HCL 20 MG CAP PO SCH (08:17)
--- NOTE | 2019-11-01 10:20 | P.DS ---
Providers Date of admission: 10/27/19 13:36 Expected date of discharge: 11/01/19 Attending physician: Viviane Sawyer MD Consults: 10/27/19 13:47 Consult Physician Routine Consulting Provider: Ravi Sauceda Consult Reason/Comments: medical management Do you want consulting provider notified?: Yes Primary care physician: Austen Calero Hospital Course: Discharge Diagnosis: bipolar disorder type I current episode depressed, moderate severity; cannabis use disorder, mild; OCD Reason for Admission: Patient is a 39-year-old female with a history of bipolar disorder, OCD U currently lives alone has an 11-year-old son and 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 Patient presented to the hospital yesterday with her mother after patient has been experiencing an increase in her depression for the past 2 weeks. As per ED report states that patient has had trouble getting out of bed and taking care of herself in her house. Patient has had poor energy and motivation and having suicidal ideations. Patient appeared to be disheveled however was attempting to cooperate during interview. She endorsed having bipolar disorder for many years and has been on medications including Abilify Prozac and Lamictal which has helped her stay stable in the past. She is admitted to previous manic episodes however denies any within the past 2 months. She states that she has been off her medications for approximately one week now due to poor motivation. She claims that she is recently had a big stressor in her life a five-year relationship is ended with her boyfriend. She claims that she is also having difficulty working 3 jobs and is having financial problems keeping up with the bills. Patient also admitted to having stable OCD and having obsessions over keeping order. She claims that she slept well last night and has been having a decrease in her appetite and energy. Patient denies any suicidal or homicidal ideations intent or plan. At this time patient denies any auditory or visual hallucinations. Patient denies any flight of ideas racing thoughts and increased in goal directed behavior. Patient admits to using marijuana daily approximately 1 joint a day, also states that she recently tried methamphetamine with her ex-boyfriend and her UDS came back positive for methamphetamine, benzodiazepines THC and TCAs. Patient denies any cigarette or alcohol use at this time. MENTAL STATUS EXAM ON ADMISSION: General Appearance: Patient appears to be disheveled, older than stated age is alert, and attempts to cooperate. Fair eye contact. Behavior: Patient is calmly seated without any agitated behavior. Speech: Patient's speech is fluent and nonpressured. Soft-spoken. Mood/Affect: Patient reports their mood is depressed, affect is congruent and constricted. Suicidality/Homicidality: Patient denies having any suicidal or homicidal ideation intent or plan. Perceptions: Patient denies any auditory or visual hallucinations. Though content/process: There is no evidence of any delusional thought content and thought process is linear and goal-directed. Vague/evasive. Memory and concentration: AOX3, grossly intact for the purposes of this session. Can spell "WORLD" backwards Judgment and insight: poor Hospital Course: patient was admitted on a voluntary basis and placed on routine observation, group and activity therapy were ordered and the patient also had a medical consultation.patient was continued on Ditropan for her medical problems. Patient was restarted on her Abilify, Prozac and Lamictal and these were t itrated during her hospital stay to Abilify 5 mg daily, Prozac 60 mg daily and Lamictal 100 mg at bedtime. Patient had been on these prior doses of both Prozac and Lamictal her Abilify was slightly increased from 4 mg a day to 5 mg a day. Patient was also placed on melatonin 5 mg at bedtime to assist with sleep. Patient slowly improved with the restart of her medications and a slight increase in her dose of Abilify, she reported no longer feeling depressed, she reported that her sleep was good. Patient had been using Klonopin on an as- needed basis as an outpatient and she continued to use Ativan as needed during her hospital stay at night reporting that she was feeling anxious. Patient and I had a long discussion regarding the need to decrease her use of Klonopin, use of caffeine, need for exercise and good sleep hygiene. Patient did not attend groups or activities while in the hospital stating that she was not a social person. Patient reported no side effects from the medication and stated that she'll return to her baseline with the restart of her medications and slight increase in Abilify. Patient states that she had only used the methamphetamine on one occasion and states that she has no interest in restarting that. Patient states that she will consider decreasing her use of marijuana. Patient states that she felt she was ready for discharge and so her return to her own home. Patient's TSH slightly decreased however her T4 was within normal range. Allergies No Known Allergies Allergy (Verified 10/27/19 14:25) Laboratory Last Values WBC 5.1 k/uL (3.8-10.6) 10/28/19 07:27 RBC 5.12 m/uL (3.80-5.40) 10/28/19 07:27 Hgb 14.5 gm/dL (11.4-16.0) 10/28/19 07:27 Hct 43.1 % (34.0-46.0) 10/28/19 07:27 MCV 84.1 fL (80.0-100.0) 10/28/19 07:27 MCH 28.3 pg (25.0-35.0) 10/28/19 07:27 MCHC 33.7 g/dL (31.0-37.0) 10/28/19 07:27 RDW 12.5 % (11.5-15.5) 10/28/19 07:27 Plt Count 305 k/uL (150-450) 10/28/19 07:27 Neutrophils % 65 % 10/28/19 07:27 Lymphocytes % 23 % 10/28/19 07:27 Monocytes % 6 % 10/28/19 07:27 Eosinophils % 3 % 10/28/19 07:27 Basophils % 0 % 10/28/19 07:27 Neutrophils # 3.3 k/uL (1.3-7.7) 10/28/19 07:27 Lymphocytes # 1.2 k/uL (1.0-4.8) 10/28/19 07:27 Monocytes # 0.3 k/uL (0-1.0) 10/28/19 07:27 Eosinophils # 0.2 k/uL (0-0.7) 10/28/19 07:27 Basophils # 0.0 k/uL (0-0.2) 10/28/19 07:27 Sodium 141 mmol/L (137-145) 10/28/19 07:27 Potassium 3.5 mmol/L (3.5-5.1) 10/28/19 07:27 Chloride 99 mmol/L (98-107) 10/28/19 07:27 Carbon Dioxide 33 mmol/L (22-30) H 10/28/19 07:27 Anion Gap 9 mmol/L 10/28/19 07:27 BUN 10 mg/dL (7-17) 10/28/19 07:27 Creatinine 0.70 mg/dL (0.52-1.04) 10/28/19 07:27 Est GFR (CKD-EPI)AfAm >90 (>60 ml/min/1.73 sqM) 10/28/19 07:27 Est GFR (CKD-EPI)NonAf >90 (>60 ml/min/1.73 sqM) 10/28/19 07:27 Glucose 98 mg/dL (74-99) 10/28/19 07:[address] Glu mg/dL 114 10/28/19 07:27 Hemoglobin A1c 5.6 % (4.0-6.0) 10/28/19 07:27 Calcium 9.3 mg/dL (8.4-10.2) 10/28/19 07:27 Total Bilirubin 0.7 mg/dL (0.2-1.3) 10/28/19 07:27 AST 35 U/L (14-36) 10/28/19 07:27 ALT 34 U/L (4-34) 10/28/19 07:27 Alkaline Phosphatase 64 U/L (38-126) 10/28/19 07:27 Total Protein 6.5 g/dL (6.3-8.2) 10/28/19 07:27 Albumin 3.8 g/dL (3.5-5.0) 10/28/19 07:27 Triglycerides 120 mg/dL (<150) 10/28/19 07:27 Cholesterol 144 mg/dL (<200) 10/28/19 07:27 LDL Cholesterol, Calc 83 mg/dL (0-99) 10/28/19 07:27 HDL Cholesterol 37 mg/dL (40-60) L 10/28/19 07:27 TSH 0.256 mIU/L (0.465-4.680) L 10/28/19 07:27 Free T4 1.06 ng/dL (0.78-2.19) 10/28/19 07:27 Urine Color Dark Yellow 10/27/19 13:00 Urine Appearance Cloudy (Clear) H 10/27/19 13:00 Urine pH 6.0 (5.0-8.0) 10/27/19 13:00 Ur Specific [place] 1.031 (1.001-1.035) 10/27/19 13:00 Urine Protein 1+ (Negative) H 10/27/19 13:00 Urine Glucose (UA) Negative (Negative) 10/27/19 13:00 Urine Ketones 1+ (Negative) H 10/27/19 13:00 Urine Blood Small (Negative) H 10/27/19 13:00 Urine Nitrite Negative (Negative) 10/27/19 13:00 Urine Bilirubin Negative (Negative) 10/27/19 13:00 Urine Urobilinogen 3.0 mg/dL (<2.0) 10/27/19 13:00 Ur Leukocyte Esterase Small (Negative) H 10/27/19 13:00 Urine RBC 12 /hpf (0-5) H 10/27/19 13:00 Urine WBC 9 /hpf (0-5) H 10/27/19 13:00 Ur Squamous Epith Cells 25 /hpf (0-4) H 10/27/19 13:00 Calcium Oxalate Crystal Moderate /hpf (None) H 10/27/19 13:00 Urine Bacteria Occasional /hpf (None) H 10/27/19 13:00 Urine Mucus Many /hpf (None) H 10/27/19 13:00 Urine HCG, Qual Not Detected (Not Detectd) 10/27/19 13:00 Urine Opiates Screen Not Detected (NotDetected) 10/27/19 13:00 Ur Oxycodone Screen Not Detected (NotDetected) 10/27/19 13:00 Urine Methadone Screen Not Detected (NotDetected) 10/27/19 13:00 Ur Propoxyphene Screen Not Detected (NotDetected) 10/27/19 13:00 Ur Barbiturates Screen Not Detected (NotDetected) 10/27/19 13:00 U Tricyclic Antidepress Detected (NotDetected) H 10/27/19 13:00 Ur Phencyclidine Scrn Not Detected (NotDetected) 10/27/19 13:00 Ur Amphetamines Screen Detected (NotDetected) H 10/27/19 13:00 U Methamphetamines Scrn Detected (NotDetected) H 10/27/19 13:00 U Benzodiazepines Scrn Detected (NotDetected) H 10/27/19 13:00 Urine Cocaine Screen Not Detected (NotDetected) 10/27/19 13:00 U Marijuana (THC) Screen Detected (NotDetected) H 10/27/19 13:00 Discharge Mental Status: Appearance/Attitude: patient is casually dressed, makes eye contact and is cooperative. Behavior: patient does not display any psychomotor agitation or retardation. Speech/Language: patient's speech is spontaneous and normal volume and rhythm and she is coherent. Thought Process: patient is goal-directed there is no evidence of loose association or flight of ideas Thought Content: patient denies any auditory or visual hallucinations, no delusions or paranoid ideation were elicited and the patient reports she is no longer feeling depressed, tired and unmotivated.patient reports she didn't attend groups or activities in the hospital because she is not a social person. She reports that her sleep had improved and she was eating well. Suicidal/Homicidal Ideation: patient denied any current suicidal or homicidal ideation Sensorium/Cognition: patient was alert and oriented to person, place, and time and her recent and remote memory were grossly intact Mood/Affect: patient's mood was euthymic and her affect was appropriate Insight/Judgment: patient's insight and judgment are fair Risk Assessment: patient's risk for readmission is low should she be compliant with medication and outpatient therapy and avoid all alcohol and drugs Discharge Plan: she'll return to live in her own home, she will continue to take Abilify 5 mg in the morning, Prozac 60 mg in the morning and Lamictal 100 mg at bedtime, melatonin 5 mg at bedtime and was given prescriptions for Abilify, Prozac and melatonin stating she had sufficient Lamictal at home. Patient will follow-up with [facility] where she had been receiving care. Patient was advised to avoid all alcohol and drugs. We again reviewed good sleep hygiene, caffeine use and the need for exercise. Patient Condition at Discharge: Stable Plan - Discharge Summary New Discharge Prescriptions: New ARIPiprazole [Abilify] 5 mg PO DAILY #14 tab Melatonin 5 mg PO HS #30 tablet Continue Oxybutynin Chloride [Ditropan] 5 mg PO HS lamoTRIgine [LaMICtal] 100 mg PO DAILY FLUoxetine HCL [PROzac] 60 mg PO QAM #42 cap Discontinued Pregabalin [Lyrica] 150 mg PO BID ARIPiprazole [Abilify] 4 mg PO QAM Dextroamphetamine/Amphetamine [Adderall] 20 mg PO BID Discharge Medication List Oxybutynin Chloride [Ditropan] 5 mg PO HS 02/28/19 [History] lamoTRIgine [LaMICtal] 100 mg PO DAILY 10/27/19 [History] ARIPiprazole [Abilify] 5 mg PO DAILY #14 tab 11/01/19 [Rx] FLUoxetine HCL [PROzac] 60 mg PO QAM #42 cap 11/01/19 [Rx] Melatonin 5 mg PO HS #30 tablet 11/01/19 [Rx] Follow up Appointment(s)/Referral(s): [facility] [Outside] - 11/06/19 1:00 pm (Annamaria) Austen Calero MD [Primary Care Provider] - 1-2 days Activity/Diet/Wound Care/Special Instructions: Activity and diet as tolerated. Avoid the use of street drugs and alcohol. Take all medications as prescribed. When you are in need of refills on your medications please contact your medical provider and/or outpatient psychiatrist to have this done. Please go to scheduled outpatient appointment for aftercare treatment. If symptoms return or become worse, call the crisis line at and/or go to the nearest emergency room for evaluation. Discharge Disposition: HOME SELF-CARE
== END 2019-11-01 11:32 | disposition home or self-care (01) | DRG 885 ==
LOC: EC 11:35 → 3MHU 13:36
PROVIDERS: ADMIT Psychiatry & Neurology Psychiatry; ATTEND Psychiatry & Neurology Psychiatry
DX: F31.30 Bipolar disorder, current episode depressed, mild or moderate severity, unspecified (principal); F41.9 Anxiety disorder, unspecified; F42.9 Obsessive-compulsive disorder, unspecified; G47.00 Insomnia, unspecified; F12.10 Cannabis abuse, uncomplicated; Q80.9 Congenital ichthyosis, unspecified; Z79.899 Other long term (current) drug therapy; Z98.891 History of uterine scar from previous surgery; Z98.890 Other specified postprocedural states; Z91.14 Patient's other noncompliance with medication regimen
CPT/HCPCS: 80053; 80061; 80306; 81001; 81025; 82075; 83036; 84439; 84443; 85025; 99285

== ENCOUNTER → 2020-11-26 | Outpatient (CLI) | payer OTHER ==
[2020-11-26 23:40] LABS: C Reactive Protein <0.4 mg/dL (0.0-0.8); Creatine Kinase 296 U/L (26-186)
[2020-11-27 10:14] LABS: Aldolase 4.6 U/L (1.2-7.6)
[2020-11-27 15:45] LABS: HLA B27 NEGATIVE
== END | disposition home or self-care (01) ==
LOC: LABWHC1 10:26
PROVIDERS: ATTEND Internal Medicine Rheumatology
DX: M62.81 Muscle weakness (generalized) (principal); M47.816 Spondylosis without myelopathy or radiculopathy, lumbar region; R52 Pain, unspecified
CPT/HCPCS: 36415; 82085; 82550; 84443; 85652; 86038; 86140; 86812

== ENCOUNTER → 2021-03-13 | Outpatient (CLI) | payer OTHER ==
--- NOTE | 2021-03-14 13:35 | MM ---
Reason for exam: screening (asymptomatic). Last mammogram was performed 5 years and 8 months ago. History: Reductions of both breasts, 1993. Took hormonal contraceptives for 4 years beginning at age 31. Physical Findings: A clinical breast exam by your physician is recommended on an annual basis and results should be correlated with mammographic findings. MG Screening Mammo w CAD Bilateral CC and MLO view(s) were taken. Prior study comparison: July 04, 2015, right breast MG diagnostic mammo RT w CAD. January 04, 2015, bilateral MG diagnostic mammo w CAD [facility]. The breast tissue is heterogeneously dense. This may lower the sensitivity of mammography. Benign calcifications. No significant changes when compared with prior studies. ASSESSMENT: Benign, BI-RAD 2 RECOMMENDATION: Routine screening mammogram of both breasts in 1 year.
== END | disposition home or self-care (01) ==
LOC: RADMAMWWP 11:04
PROVIDERS: ATTEND Family Medicine
DX: Z12.31 Encounter for screening mammogram for malignant neoplasm of breast (principal)
CPT/HCPCS: 77067

== ENCOUNTER → 2021-09-24 | Outpatient (CLI) | payer OTHER ==
--- NOTE | 2021-09-24 13:35 | XR ---
Lumbar spine HISTORY: M79.7,M47.816,R25.2 3 views of the lumbar spine L5 appears sacralized. There is an anterolisthesis grade 1 L3-4, retrolisthesis grade 1 L2-3. Loss of disc height is present at L3-4, L1-L2. Sclerosis is present in the posterior elements of the lower l umbar spine. There is multilevel spondylosis. IMPRESSION: Sacralized L5. Degenerative disc disease and facet arthropathy, spondylolisthesis.
== END | disposition home or self-care (01) ==
LOC: RADXRMAIN 09:15
PROVIDERS: ATTEND Internal Medicine Rheumatology
DX: M51.36 Other intervertebral disc degeneration, lumbar region (principal); M43.16 Spondylolisthesis, lumbar region; M47.816 Spondylosis without myelopathy or radiculopathy, lumbar region
CPT/HCPCS: 72100

== ENCOUNTER → 2021-09-26 | Outpatient (CLI) | payer OTHER ==
--- NOTE | 2021-09-28 22:20 | XR ---
EXAMINATION TYPE: AP view pelvis and 2 views both hips DATE OF EXAM: 09/26/2021 COMPARISON: NONE HISTORY: 41-year-old female M79.7, T52, M47.816 FINDINGS: SI joints appear symmetric and intact. There is a crossover sign at the right hip. Superior femoral h ead neck junction osseous excrescences on both sides. Hip joint space is maintained. Tiny fluid withi n the pelvis. No acute fracture, subluxation, or dislocation. IMPRESSION: Small crossover sign at the right hip and small osseous excrescences at both femoral head neck junctions. These are subtle bony findings that may be seen in the setting of femoral acetabular impingement syndrome. Correlate with physical exam testing. No acute osseous abnormality seen.
== END | disposition home or self-care (01) ==
LOC: RADXRMAIN 14:10
PROVIDERS: ATTEND Internal Medicine Rheumatology
DX: M79.7 Fibromyalgia (principal); M47.816 Spondylosis without myelopathy or radiculopathy, lumbar region
CPT/HCPCS: 73521

== ENCOUNTER → 2023-04-28 | Outpatient (CLI) | payer OTHER ==
--- NOTE | 2023-05-02 20:23 | MR ---
EXAMINATION TYPE: MR elbow LT wo con DATE OF EXAM: 04/28/2023 COMPARISON: NONE HISTORY: 43-year-old female M77.12, left elbow lateral epicondylitis, Left elbow pain and limited mov ement for a few years. TECHNIQUE: Multiplanar, multisequence images of the left elbow were obtained without IV contrast. FINDINGS: The distal biceps tendon as well as the triceps insertion appears intact. No elbow joint effusion. Both ulnar trochlear and radiocapitellar joints appear intact without focal chondral defect. There is intermediate signal at the common extensor tendon origin. Along the posterior distal inserti on, there is a small partial tear measuring 5 mm wide with adjacent soft tissue edema that seems to c orrespond to a portion of the origin of the extensor carpi ulnaris. The underlying RCL and LUCL appear intact. The common flexor tendon origin pronator mass as well as the underlying UCL appear intact. The brachial neurovascular bundle and ulnar nerves appear normal. Nonspecific mild medial sided soft tissue swelling. No acute or healing fracture or abnormal bone marrow edema otherwise seen. IMPRESSION: Mild to moderate common extensor tendinosis. There is a 5 mm wide, small partial tear involving the o rigin of the extensor carpi ulnaris, posteriorly.
== END | disposition home or self-care (01) ==
LOC: RADMRIMAIN 11:31
PROVIDERS: ATTEND Orthopaedic Surgery
DX: M77.12 Lateral epicondylitis, left elbow (principal); M77.11 Lateral epicondylitis, right elbow; S56.512A Strain of other extensor muscle, fascia and tendon at forearm level, left arm, initial encounter; X58.XXXA Exposure to other specified factors, initial encounter